=== PATIENT | female | born 1990 | race Caucasian/White ===

== ENCOUNTER 2018-02-11 15:32 | Emergency (ER) | payer MEDICAID ==
[2016-01-16 09:00] VITALS: BMI 32.9
--- NOTE | 2018-02-11 16:24 | OBHP ---
Datetime: 02/11/2018 16:17 IP Adm Impression: Term, intrauterine ; No Active Labor IP Admit Plan: Discharge home Admit Comment, IP Provider: PT presented today for complaints of vaginal spotting since last night w ith some lower abdominal cramping. she denies leaking of fluid or contracitons. POBHx: SAB x1,2016 PGYNx: last pap normal, denies STDs. PMHx none PSHx: none social negative x 3 All: NKDA PE: SVE tracing category 1 A/P 25 @ 38 weeks presents to L_d for complaints of vaginal spotting. 1) Vitals stable, afebrile. 2) Vaginal spotting: last US: no previa, sve: . 3) False labor. 4) Discharge home. 5) Plan D/W Dr. Alem tellez Pelvic Type - PN: Adequate Extremities - PN: Normal Abdomen - PN: Normal Back - PN: Normal Breast - PN: Normal Lungs - PN: Normal Heart - PN: Normal Thyroid - PN: Normal Neurologic - PN: Normal HEENT - PN: Normal General - PN: Normal FHR - Baseline A Provider: 140 Membranes, Provider: Intact Contraction Comments Provider: none Comments, ACOG Physical Exam: SVE: EGA AdmitDate IP: 38.0 IP Chief Complaint: Vaginal bleeding; evaluation NICHD Variability Prov Fetus A: Moderate 6-25bpm NICHD Accel Fetus A IP Provider: 15X15 Dilatation, Provider: 1 Effacement, Provider: 30 Station, Provider: -3 Genitourinary Exam: Normal DTRs - PN: Normal
[2018-02-13 15:08] VITALS: BP 91/56; PULSE 88
== END 2018-02-11 16:33 | disposition home or self-care (01) ==
LOC: C.EROB 15:32
DX: O46.93 Antepartum hemorrhage, unspecified, third trimester (principal); Z3A.38 38 weeks gestation of pregnancy

== ENCOUNTER 2018-02-18 20:45 | Inpatient (IN) | payer MEDICAID ==
[2018-02-18 20:58] VITALS: BMI 31.8
[2018-02-18] MEDS ORDERED: Penicillin G 5 Million Unit Vial IVPB ONE ×2 (21:14→21:31)
[2018-02-18] MEDS ORDERED: Lactated Ringer's 1,000 ML IV SCH (21:15)
--- NOTE | 2018-02-18 21:15 | OBADHP ---
Datetime: 02/18/2018 21:09 Admit Comment, IP Provider: at 39weeks came with c/o ctxs started in am, irrg , 02/26, no vb, lo f+fm obhx 1 x , 1 sab pmh de med pnv all dxycyline psh de ve /-2 a/p at 39weeks in labor admit to l_d npo/ivf labs pain ma cont toco and efm pen g anticipate dr tellez aware soch de Pelvic Type - PN: Adequate Extremities - PN: Normal Abdomen - PN: Normal Back - PN: Normal Breast - PN: Normal Lungs - PN: Normal Heart - PN: Normal Thyroid - PN: Normal Neurologic - PN: Normal HEENT - PN: Normal General - PN: Normal FHR - Baseline A Provider: 130 Contraction Comments Provider: q1-5 IP Hx Assessment: The History has been Reviewed and is Current Vital Signs Provider: Reviewed; Within Normal Limits IP Chief Complaint: Uterine contractions NICHD Variability Prov Fetus A: Moderate 6-25bpm NICHD Accel Fetus A IP Provider: 15X15 Dilatation, Provider: 3 Effacement, Provider: 80 Station, Provider: -2 Genitourinary Exam: Normal DTRs - PN: Normal EGA AdmitDate IP: 39.0 IP Adm Impression: Term, intrauterine ; Active labor IP Admit Plan: Admit to unit; Initiate labor protocol Datetime: 02/11/2018 16:17 Membranes, Provider: Intact Comments, ACOG Physical Exam: SVE:
[2018-02-18 21:50] LABS: SQUAMOUS EPITHIAL 10 /hpf (0-5); URINE BACTERIA MOD (<OCC); URINE BILIRUBIN NEGATIVE (NEGATIVE); URINE BLOOD 1+ (NEGATIVE); URINE CLARITY Hazy (Clear); URINE COLOR Straw (YELLOW); URINE GLUCOSE (UA) NORMAL (Normal); URINE LEUKOCYTE ESTERASE 2+ Leu/uL (Negative); URINE PROTEIN NEGATIVE (NEGATIVE); URINE UROBILINOGEN NORMAL mg/dL (0.2-1.0)
[2018-02-18 21:51] LABS: BASO # 0.1 K/uL (0.0-0.2); BASO % 0.4 % (0.0-2.0); EOS # 0.3 K/uL (0.0-0.7); EOS % 2.4 % (0.0-4.0); HEMOGLOBIN 11.5 g/dL (11.0-16.0); LYMPH # 2.5 K/uL (1.0-4.3); LYMPH % 18.7 % (20.0-40.0); MEAN CELL VOLUME 87.1 fL (81.0-99.0); MEAN CORPUSCULAR HEMOGLOBIN 30.1 pg (27.0-31.0); MEAN CORPUSCULAR HGB CONC 34.5 g/dL (33.0-37.0); MEAN PLATELET VOLUME 9.8 fL (7.2-11.7); MONO # 0.7 K/uL (0.0-0.8); MONO % 5.1 % (0.0-10.0); NEUT # 9.6 K/uL (1.8-7.0); NEUT % 73.4 % (50.0-75.0); RBC 3.81 Mil/uL (3.80-5.20); RED CELL DISTRIBUTION WIDTH 13.1 % (11.5-14.5); WHITE BLOOD COUNT 13.1 K/uL (4.8-10.8)
[2018-02-18 22:03] LABS: ALBUMIN 3.2 g/dL (3.5-5.0); ALT/SGPT 17 U/L (9-52); AST/SGOT 26 U/L (14-36); BLOOD UREA NITROGEN 8 mg/dL (7-17); GFR AFRICAN-AMERICAN > 60; GFR NON-AFRICAN AMERICAN > 60
[2018-02-19] MEDS ORDERED: Lidocaine 2% MPF (5 ml) Inj ONE ×3 (01:54→04:15)
[2018-02-19] MEDS ORDERED: cefOXitin IV 2 gm in Dextrose 2 GM/50 ML BAG IVPB ONE (03:07)
[2018-02-19] MEDS ORDERED: cefOXitin IV 2 gm in Saline 2 GM/50 ML BAG IVPB ONE (03:09)
--- NOTE | 2018-02-19 05:16 | OBDS ---
DELIVERY PERSONNEL Delivery Doctor: Alem Stevens MD Scrub Nurse: Vicenta Epperson Utility Worker: Chyna Lipscomb RN MATERNAL INFORMATION Delivery Anesthesia: Local Medications in Delivery: pitocin 20 units Estimated Blood Loss (ml): 150 Placenta Cultured: No Maternal Complications: None Provider Comments: NORMAL SPONTANEOUS VAGINAL DELIVERY TO A LIVE BABY BOY, WITH A MIDLINE EPISIOTOMY AND REPAIRED UNDER A LOCAL TOPICAL AND IV SEDATION BY DR. MANUEL. UTERUS EXPLORED MANUALLY AND WAS INTA CT. UTERUS IS FIRM AND HARD. EBL 150 CC. LABOR SUMMARY EDC: 02/25/2018 00:00 No. Babies in Womb: 1 Attempted: No Labor Anesthesia: None LABOR INFORMATION Reason for Induction: Not Applicable Onset of Labor: 02/18/2018 19:00 Complete Dilatation: 02/19/2018 01:49 Oxytocin: N/A Group B Beta Strep: Positive Antibiotics # of Doses: 2 Antibiotics Time of Last Dose: 0115 Steroids Given: None Reason Steroids Not Administered: Not Applicable MEMBRANES Membranes Rupture Method: Artificial Rupture of Membranes: 02/19/2018 01:39 Length of Rupture (hrs): 0.97 Amniotic Fluid Color: Clear Amniotic Fluid Amount: Moderate Amniotic Fluid Odor: Normal STAGES OF LABOR Stage 1 hrs: 6 Stage 1 min: 49 Stage 2 hrs: 0 Stage 2 min: 48 Stage 3 hrs: 0 Stage 3 min: 3 Total Time in Labor hrs: 7 Total Time in Labor min: 40 VAGINAL DELIVERY Episiotomy: Median Laceration Extension: N/A Laceration Type: None Laceration Repair Note: MIDLINE EPISIOTOMY REPAIR WITH 2-0 CHROMIC CATGUT #7 SUTURES WITH LOCAL X YLOCAINE ANESTHESIA 10 CC 2%. MULTIPLE INTERRUPTED SUTURES OVER THE MIDLIN E SKIN EPISIOTOMY . HEM EOSTASIS ESTABLIHED. DR. MANUEL THE ANESTHESIOLOGIST WAS CALLED TO IV SEDATION FOR THE REPAIR. DR. HAIRSTON WAS CALLED TO HELP IN THE REPAIR OF THE EPISIOTOMY .. Initial Vag Sponge Count: 10 Final Vag Sponge Count: 10 Initial Vag Sharps Count: 0 Final Vag Sharps Count: 2 Sponge Count Correct: Yes; Vaginal Sweep Performed Sharps Count Correct: Yes BABY A INFORMATION Infant Delivery Date/Time: 02/19/2018 02:37 Method of Delivery: Vaginal SHOULDER DYSTOCIA BABY A Infant Delivery Date/Time: 02/19/2018 02:37 PRESENTATION/POSITION BABY A Presentation: Cephalic Cephalic Presentation: Vertex Vertex Position: Left Occipital Anterior Breech Presentation: N/A PLACENTA INFORMATION BABY A Placenta Delivery Time : 02/19/2018 02:40 Placenta Method of Delivery: Spontaneous Placenta Status: Delivered SCORES BABY A Heart Rate 1 min: >100 bpm Resp Effort 1 min: Good Cry Reflex Irritability 1 min: Cough or Sneeze or Pulls Away Muscle Tone 1 min: Active Motion Color 1 min: Body [place], Extremities Blue SCORE 1 MIN: 9 Heart Rate 5 min: >100 bpm Resp Effort 5 min: Good Cry Reflex Irritability 5 min: Cough or Sneeze or Pulls Away Muscle Tone 5 min: Active Motion Color 5 min: Body [place], Extremities Blue SCORE 5 MIN: 9 INFANT INFORMATION BABY A Gestational Age at Delivery: 39.0 Gestational Status: Term Infant Outcome : Liveborn Condition : Stable Infant Sex: Male IDENTIFICATION/MEDS BABY A ID Band Number: [id number] ID Band Location: Left Leg; Left Arm Sensor Applied: Yes Sensor Number: [id number] Sensor Location : Cord Clamp Vitamin K Given : Aquamephyton 1 mg IM; Left Thigh Erythromycin Given: Given Both Eyes WEIGHT/LENGTH BABY A Infant Birthweight (gms): 3170 Weight (lb): 7 Infant Weight (oz): 0 Length Inches: 19.50 Infant Length cms: 49.5 CORD INFORMATION BABY A No. Cord Vessels: 3 Nuchal Cord : Around Neck x1, Loose Cord Blood Taken: Yes Suction: Mouth ASSESSMENT BABY A Infant Complications: None Physical Findings at Delivery: Within Normal Limits Respirations: Appears Normal Motor Tester/ALS Called : No Infant Care By: Rad Bustos Transferred To: Remains with Mother
[2018-02-19] MEDS: Multiple Vitamins Tab PO SCH (09:35)
[2018-02-19] MEDS: cefOXitin IV 2 gm in Saline 2 GM in Sodium Chloride 0.9% 100 ML IV SCH ×2 (10:43→18:07)
[2018-02-20 07:24] LABS: HEMOGLOBIN 10.3 g/dL (11.0-16.0); MEAN CELL VOLUME 87.6 fL (81.0-99.0); MEAN CORPUSCULAR HEMOGLOBIN 30.1 pg (27.0-31.0); MEAN CORPUSCULAR HGB CONC 34.4 g/dL (33.0-37.0); MEAN PLATELET VOLUME 9.3 fL (7.2-11.7); RBC 3.42 Mil/uL (3.80-5.20); RED CELL DISTRIBUTION WIDTH 13.3 % (11.5-14.5); WHITE BLOOD COUNT 18.1 K/uL (4.8-10.8)
[2018-02-20] MEDS: Multiple Vitamins Tab PO SCH (09:35)
[2018-02-20] MEDS ORDERED: Benzocaine/Menthol 20%-0.5% Topical Spray (60 ml) TOP SCH (14:00)
[2018-02-20 16:30] VITALS: O2SAT 98
--- NOTE | 2018-02-20 20:45 | OBPPN ---
Datetime: 02/20/2018 20:33 PP Pain Prov: Within normal limits PP Nausea Prov: Denies PP Flatus Prov: Yes PP BM Prov: Yes PP Breasts Prov: Normal PP Heart Prov: Normal PP Lungs Prov: Normal PP Abdomen/Uterus Prov: Normal PP Lochia Prov: Normal PP Vulva/Perineum Prov: Normal PP CVA Tenderness Prov: Normal PP Extremities Prov: Normal PP Progress Prov: Normal PP Impression Prov: Normal progression PP Plan Prov: Continue present management PP Progress Note Prov: 1st DAY: AFEBRILE, AMBULATORY. BREASTS ARE SOFT AND LACTATING HER BABY. UTERUS FIRM AND HARD, EXTREMITIES NEGATIVE FOR EDEMA AND TENDERNESS, EPISIOTOMY INTACT, LOCHI A MINIMAL. FOR DISCHARGED HOME IN AM. TO THE OFFICE IN 4 WEEKS, CONTINUE VIT AN DORAL ANTIBI OTICS FOR 7 DAYS [ KEFLEX 500MG QID]. COLACE FOR CONSTIPATION 1 CAP OD PRN. IP PP Procedures: None Vital Signs Provider PP: Reviewed; Within Normal Limits
--- NOTE | 2018-02-20 20:53 | OBDCSUM ---
Datetime: 02/20/2018 20:44 Discharged to, Provider: Home Disch Instr Activity: Normal activity Disch Instr Diet: Regular Discharge Instructions, Provider: Routine instructions given Discharge Diagnosis, Provider: Term Delivered Discharge Time: 02/21/2018 23:00 Disch Referrals: None Contraception discussed, Prov: Yes Disch Activity Restrictions: No exercising; Minimize stair-climbing; No sexual activity; Nothing in vagina - [place], tampons, douche Discharge Comment, Provider: DISCHARGED HOME IN GOOD CONDITION. PRESCRIPTION WRITTEN FOR ANTIBIOTICS , STOOLS SOFTENER. TO THE OFFICE FOR CHECKUP IN 4 WEEKS. Contraception after Delivery: Not Planning to Use
[2018-02-21] MEDS: Multiple Vitamins Tab PO SCH (11:12)
[2018-02-21 12:15] VITALS: RESP 18
[2018-02-21 16:45] VITALS: BP 109/63; PULSE 67; TEMP 98.2
== END 2018-02-21 12:38 | disposition home or self-care (01) | DRG 373 ==
LOC: C.EROB 20:45 → C.4D 21:16 → C.4M 02-19 06:00
PROVIDERS: ADMIT Obstetrics & Gynecology; ATTEND Obstetrics & Gynecology
PROC: 10E0XZZ Delivery of Products of Conception, External Approach (ICD-10-PCS; principal; 2018-02-19)
PROC: 0W8NXZZ Division of Female Perineum, External Approach (ICD-10-PCS; 2018-02-19)
PROC: 10907ZC Drainage of Amniotic Fluid, Therapeutic from Products of Conception, Via Natural or Artificial Opening (ICD-10-PCS; 2018-02-19)
DX: O69.81X0 Labor and delivery complicated by cord around neck, without compression, not applicable or unspecified (principal); O99.824 Streptococcus B carrier state complicating childbirth; Z3A.39 39 weeks gestation of pregnancy; Z37.0 Single live birth